=== PATIENT | female | born 1955 | race Caucasian/White ===

== ENCOUNTER → 2023-08-05 | Outpatient (CLI) | payer MEDICARE | END | disposition home or self-care (01) | LOC: RAH 10:00 | PROVIDERS: ATTEND Surgery | DX: K21.9 Gastro-esophageal reflux disease without esophagitis (principal); E66.9 Obesity, unspecified; R14.0 Abdominal distension (gaseous); E11.9 Type 2 diabetes mellitus without complications | CPT/HCPCS: 78264; A9541 ==

== ENCOUNTER → 2023-09-07 | Outpatient (CLI) | payer MEDICARE | END | disposition home or self-care (01) | LOC: RAH 09:43 | PROVIDERS: ATTEND Internal Medicine Gastroenterology | DX: K21.9 Gastro-esophageal reflux disease without esophagitis (principal); R14.2 Eructation; Z98.890 Other specified postprocedural states | CPT/HCPCS: 74240 ==

== ENCOUNTER 2024-09-06 11:17 | Emergency (ER) | payer MEDICARE ==
[~2024-09-06] VITALS: Ht 162.6 cm; Wt 63.5 kg
[2024-09-06] MEDS: ketOROlac 30MG VIAL (30MG/ML) IM ONE (12:43)
[2024-09-06] MEDS: ORPHENADRINE 60MG/2ML IM ONE (12:43)
--- NOTE | 2024-09-06 13:06 | HMCIMG ---
KNEE 3VWS RT HISTORY: Right knee pain COMPARISON: None TECHNIQUE: 3 images of right knee were obtained. FINDINGS: There is no acute displaced fracture or dislocation. There is soft tissue swelling. Degenerative changes are seen. IMPRESSION: 1. Findings as described above.
[2024-09-06] MEDS ORDERED: DICL20GE TP (13:17)
--- NOTE | 2024-09-06 13:17 | ERN ---
General Chief Complaint: Knee Injury/Swelling Stated Complaint: KNEE POPPED Time Seen by MD: 11:18 Source: patient History of Present Illness Initial Comments PATIENT IS A 69-YEAR-OLD FEMALE COMING IN TO BE EVALUATED FOR KNEE PAIN. PER PATIENT A COUPLE OF DAYS AGO SHE WAS AMBULATING FELT A POP IN HER KNEE. STARTED AMBULATING WITH SOME DISCOMFORT BUT A TODAY SHE STARTED FEELING IT AGAIN. Allergies: Coded Allergies: acetaminophen (Unverified Allergy, Unknown, 09/06/24) azithromycin (Unverified Allergy, Unknown, 09/06/24) hydrocodone (Unverified Allergy, Unknown, 09/06/24) tramadol (Unverified Allergy, Unknown, 09/06/24) Past Medical History Past Medical History: High Cholesterol Past Surgical History: Other Results Laboratory and Microbiology Labs Reviewed?: Yes EKG/XRAY/US/CT/MRI X-RAY Comment [address] [address] IMAGING REPORT Signed PATIENT: G[place]S MR#: [id number] : 1955 SEX: F AGE: 69 LOCATION: [facility] [place] ORDER 113 STATUS: [facility] ER REPORT#: [id number] SERVICE 34 REASON: PAIN ORDERING PHYSICIAN: LORI MUNOZ MD PROCEDURE: KNEE 3V RT - KNEE 3VWS RT KNEE 3VWS RT HISTORY: Right knee pain COMPARISON: None TECHNIQUE: 3 images of right knee were obtained. FINDINGS: There is no acute displaced fracture or dislocation. There is soft tissue swelling. Degenerative changes are seen. IMPRESSION: 1. Findings as described above. DICTATED BY: CINDI MEEHAN MD DATE: 09/06/24 1303 ELECTRONICALLY SIGNED BY: CINDI MEEHAN MD DATE: 09/06/24 1306 MDM MDM: DIFFERENTIAL DIAGNOSIS: RIGHT KNEE PAIN, RIGHT KNEE STRAIN, RATIONALE: TESTS CONSIDERED AND ORDERED SECONDARY TO SHARED DECISION MAKING INCLUDE: PREVIOUS OUTSIDE RECORDS REVIEWED: OLD ER VISITS. RISK OF COMPLICATION AND/OR MORBIDITY OR MORTALITY OF PATIENT MANAGEMENT: NONE PATIENT IS A 69-YEAR-OLD FEMALE COMING IN TO BE EVALUATED FOR RIGHT KNEE PAIN. X-RAY DID NOT DISCLOSE ACUTE FINDING. KNEE IMMOBILIZER WAS PLACED. PATIENT WILL BE DISCHARGED IN STABLE CONDITION WITH A DIAGNOSIS OF KNEE STRAIN. I DID ADVISED HER APPROPRIATE FOLLOW UP WITH PCP FOR ONGOING EVALUATION AND MANAGEMENT. ED Course Orders Procedure Category Date Status Time Knee 3vws Rt RAD 09/06/24 Resulted 11:35 Ketorolac PHA 09/06/24 Complete Tromethamine 30mg/Ml 12:00 Orphenadrine Citrate PHA 09/06/24 Complete (Norflex) 12:00 Current Medications Medications (Trade) Dose Ordered Sig/Cameron Route PRN Reason Start Time Stop Time Status Last Admin Dose Admin Ketorolac Tromethamine (toRADol) 30 mg ONCE ONCE IM 09/06/24 12:00 09/06/24 12:11 DC 09/06/24 12:43 Orphenadrine Citrate (Norflex) 60 mg ONCE ONCE IM 09/06/24 12:00 09/06/24 12:10 DC 09/06/24 12:43 Vital Signs Date Time Temp Pulse Resp B/P (MAP) Pulse Ox O2 Delivery O2 Flow Rate FiO2 09/06/24 12:09 97.9 66 20 148/79 98 Room Air DX & DISP Disposition: Discharge Departure Impression: Primary Impression: Strain of knee and leg, right Condition: Stable Scripts Diclofenac Sodium (Voltaren Arthritis Pain) 1 % Gel..gram. 4 GM TP TID for 7 Days, #1 TUBE Prov: LORI MUNOZ MD 09/06/24 Additional Instructions: FOLLOW-UP WITH PRIMARY CARE PROVIDER IN 1 TO 2 DAYS. TAKE MEDICATIONS DIRECTED HERE IN THE EMERGENCY ROOM. OKAY TO CONTINUE HOME MEDICATIONS UNLESS OTHERWISE DISCUSSED DURING YOUR VISIT IN THE EMERGENCY ROOM TODAY. RETURN TO YOUR NEAREST EMERGENCY ROOM IF SYMPTOMS WORSEN OR IF THERE IS NO IMPROVEMENT. CALL 911 IF YOU NEED IMMEDIATE ASSISTANCE. TAKE TYLENOL [id number] NEEDED AND IF NO CONTRAINDICATIONS ARE PRESENT. INCREASE ORAL HYDRATION. A WOUND CULTURE OR URINE CULTURE WAS ORDERED HERE IN THE EMERGENCY ROOM DEPARTMENT PLEASE FOLLOW-UP WITH PRIMARY CARE PROVIDER AND ADVISE THEM TO GET REPEAT PORTS FROM OUR FACILITY. IF YOU HAD ANY IVAN WRAP/SPLINTS THAT WERE APPLIED HERE, PLEASE DO NOT REMOVE THEM UNTIL YOU SEE YOUR PRIMARY CARE OR SPECIALTY. REFERRALS: Referrals: DYLAN LOGAN MD (PCP) WOJCIECH LOVE MD Time of Disposition: 13:16 LORI MUNOZ MD September 06, 2024 13:17
[2024-09-06 13:37] VITALS: BP 140/76; PULSE 65; RESP 20; TEMP 97.9; O2SAT 98
== END 2024-09-06 14:19 | disposition home or self-care (01) ==
LOC: EDH 11:17
DX: S89.91XA Unspecified injury of right lower leg, initial encounter (principal); E78.00 Pure hypercholesterolemia, unspecified; Z88.1 Allergy status to other antibiotic agents; Z88.5 Allergy status to narcotic agent; W18.39XA Other fall on same level, initial encounter; Y93.89 Activity, other specified; Y92.89 Other specified places as the place of occurrence of the external cause; Y99.8 Other external cause status
CPT/HCPCS: 99284; 29505; 73562; 96372 ×2; J1885; J2360